=== PATIENT | female | born 2005 | race Caucasian/White ===

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

== ENCOUNTER 2024-01-22 08:58 | Inpatient (IN) | payer OTHER ==
[~2024-01-22 08:58] MED LIST: Bupivacaine PF 0.5% 30 ML VIAL ONE; ePHEDrine Sulfate 50 MG/10 ML VIAL ONE
[2024-01-22] MEDS ORDERED: Lidocaine 1% (PF) 30 ML VIAL SC PRN (09:48)
[2024-01-22] MEDS ORDERED: Ondansetron PF 4 MG/2 ML Vial IVP PRN ×3 (09:48→23:42)
[2024-01-22] MEDS ORDERED: hydrALAZINE 20 MG/ML VIAL SLOW IVP PRN ×2 (09:48→23:42)
[2024-01-22] MEDS ORDERED: Promethazine HCl 25 MG/ML VIAL IM PRN ×3 (09:48→23:42)
[2024-01-22 09:55] VITALS: BMI 27.4
[2024-01-22] MEDS ORDERED: Misoprostol 100 MCG TAB PO SCH (10:00)
[2024-01-22] MEDS ORDERED: Lactated Ringer's 1,000 ML IV SCH (10:00)
[2024-01-22] MEDS ORDERED: Oxytocin 30 units/NS 500 ML 500 ML IV SCH ×2 (10:00)
[2024-01-22 11:46] LABS: Hematocrit 35.5 % (34.9-44.5); Hemoglobin 12.2 g/dL (12.0-15.5); Mean Corpuscular HGB CONC 34.4 g/dL (32.0-36.0); Mean Corpuscular Hemoglobin 30.5 pg (27.0-33.0); Mean Corpuscular Volume 88.8 fL (81.6-98.3); Mean Platelet Volume 11.7 fL (7.4-10.4); Platelet Count 319 10x3/uL (150-450)
[2024-01-22] MEDS: fentaNYL 50 mcg/mL 1 mL Vial SLOW IVP PRN (12:34)
[2024-01-22] MEDS ORDERED: Acetaminophen 325 MG TAB PO PRN (15:04)
[2024-01-22] MEDS ORDERED: ePHEDrine Sulfate 50 MG/10 ML VIAL SLOW IVP PRN (15:04)
[2024-01-22] MEDS ORDERED: diphenhydrAMINE 50 MG/ML VIAL IVP PRN (15:04)
[2024-01-22] MEDS ORDERED: Naloxone HCl 0.4 mg/ml Vial IVP PRN ×2 (15:04)
[2024-01-22] MEDS ORDERED: Moisturizing Cream (Eucerin) 113 GM JAR TOP PRN (15:04)
[2024-01-22] MEDS ORDERED: Lactated Ringer's 500 ML IV PRN (15:04)
[2024-01-22 15:11] LABS: HBsAg Index 0.19 S/CO (0-0.99); Hep B Surf Ag - L&D Non-Reactive S/CO (NonReactive)
[2024-01-22 15:12] LABS: Syphilis Antibody Nonreactive (Nonreactive); Syphilis Antibody Index 0.07 S/CO (<1.00 Non-Reactive)
[2024-01-22] MEDS ORDERED: fentaNYL 2 mcg/Ropivacaine 0.2% Epidural 100 ML CADD EPIDURAL SCH (15:15)
[2024-01-22] MEDS ORDERED: Communication Order-Pharmacy FS SCH (15:15)
[2024-01-22] MEDS ORDERED: Preparation H Ointment 28 GM TUBE PR PRN (23:42)
[2024-01-22] MEDS ORDERED: Milk Of Magnesia 30 ML UDCUP PO PRN (23:42)
[2024-01-22] MEDS ORDERED: Lanolin Ointment 7 GM TUBE TOP PRN (23:42)
[2024-01-22] MEDS ORDERED: diphenhydrAMINE 25 MG CAP PO PRN (23:42)
[2024-01-22] MEDS ORDERED: Benzocaine-Menthol 82.5 ML CAN TOP PRN (23:42)
[2024-01-22] MEDS ORDERED: Bisacodyl 10 MG SUPP PR PRN (23:42)
[2024-01-23 00:03] LABS: Analyzer IN Cardio CS NICU; RapidComm Collect By RN; pH (Cord, venous) 7.106 (7.250-7.350)
[2024-01-23 00:04] LABS: Analyzer IN Cardio CS NICU; RapidComm Collect By RN
[2024-01-23] MEDS: Acetaminophen 500 MG TAB PO PRN (00:14)
[2024-01-23] MEDS: Clindamycin/D5W 900 MG in Premix 1 BAG IVPB SCH (00:14)
[2024-01-23] MEDS: Gentamicin 290 MG, Admixture Fee 1 EACH in Sodium Chloride 0.9% 100 ML IVPB SCH (00:30)
[2024-01-23] MEDS: Ibuprofen 800 MG TAB PO SCH (05:28)
[2024-01-23] MEDS ORDERED: traMADol HCl 50 MG TAB PO PRN (05:50)
[2024-01-23] MEDS: Prenatal Vitamin 1 TAB PO SCH (09:00)
[2024-01-23] MEDS: Docusate 100 MG CAP PO SCH (09:01)
[2024-01-23] MEDS: Ferrous Sulfate 325 MG TAB PO SCH (09:01)
[2024-01-23] MEDS: Azithromycin 500 MG VIAL ONE (18:22)
[2024-01-23] MEDS: CEFAZOLIN 2 GM VIAL ONE (18:22)
[2024-01-24] MEDS: Boostrix 0.5 ML (Tdap) VIAL (>/=7 yrs of age) IM ONE (05:17)
[2024-01-24] MEDS: fentaNYL/Ropivacaine Epidural 100 ML ONE (05:17)
[2024-01-24] MEDS: Simethicone Chewable 80 MG TAB PO PRN (22:09)
[2024-01-25 08:14] VITALS: BP 129/84; TEMP 97.7
== END 2024-01-25 13:30 | disposition home health service (06) | DRG 805 ==
LOC: CSHLD/OP 08:58 → CSHLD 10:48 → CSHPED 01-23 02:40
PROVIDERS: ADMIT Family Medicine; ATTEND Family Medicine
PROC: 10E0XZZ Delivery of Products of Conception, External Approach (ICD-10-PCS; principal; 2024-01-22)
DX: O99.344 Other mental disorders complicating childbirth (principal); O41.1230 Chorioamnionitis, third trimester, not applicable or unspecified; Z37.0 Single live birth; Z88.0 Allergy status to penicillin; Z91.010 Allergy to peanuts; Z91.018 Allergy to other foods; Z3A.38 38 weeks gestation of pregnancy; F32.A Depression, unspecified; F41.9 Anxiety disorder, unspecified; O99.345 Other mental disorders complicating the puerperium; F53.0 Postpartum depression
CPT/HCPCS: 36415; 51702; 82805; 85027; 86780; 86850; 86900; 86901; 87340; 99285; J0665; J1580; J3010; J3490